=== PATIENT | male | born 1980 | race Caucasian/White ===

== ENCOUNTER 2023-03-13 11:17 | Emergency (ER) | payer OTHER, SELFPAY ==
--- NOTE | 2023-03-13 11:30 | ED.LOWEXIN ---
HPI - Extremity Injury (Lower) General Chief Complaint: Extremity Injury, Lower Stated Complaint: rt knee pain Source: patient Mode of arrival: ambulatory Limitations: no limitations History of Present Illness HPI Narrative: 42 y/o male presented for c/o right knee pain for 5 days. States it started when he stood up from the couch and felt a pain. Yesterday the right knee 'gave out' and felt like he could not apply any weight. Reports today the pain is minimal, the knee just feels weak or fatigued. Denies redness, swelling, numbness, tingling or weakness. States he rides his bike 5 days a week but has not rode for over one week due to the heat. Related Data Allergies Allergy/AdvReac Type Severity Reaction Status Date / Time azithromycin Allergy Rash Verified 03/13/23 11:32 Review of Systems Review of Systems: CONSTITUTIONAL: Denies body aches, fever, chills EYES: Denies visual changes ENT: Denies rhinorrhea, congestion CARDIOVASCULAR: Denies chest pain, palpitations, or edema. RESPIRATORY: Denies cough or dyspnea. GASTROINTESTINAL: Denies abdominal pain, nausea, vomiting, or diarrhea. SKIN: Denies rash, itching, or wounds. MUSCULOSKELETAL: Reports right knee pain Denies back pain, or myalgia. NEUROLOGIC: Denies headache, numbness, tingling, or weakness. PSYCH: reports depression and anxiety. All systems reviewed & are unremarkable except as noted in HPI and below PMFSH Past Medical History Medical History (Updated 03/13/23 @ 11:54 by Mirella Driver, TIFFANIE) No pertinent past medical history Comments At time of signature, I have reviewed and agree with nursing past medical, surgical, social and family history unless otherwise noted. Please see nursing chart for further information. There is no relevant family history pertinent to the presenting complaint Exam Narrative: GENERAL: Well-appearing, and in no acute distress. CHEST: Speaks in full sentences. No respiratory distress. HEART: Regular rate and rhythm. Normal and equal peripheral pulses. EXTREMITIES: Patient is able to bear weight and ambulate with minimal pain to the right knee. No bruising, erythema or warmth. The right knee is without obvious asymmetry or deformity when compared to the other knee. Patient is able to tolerate full flexion, extension, internal and external rotation. No tenderness to palpation of the patella or surrounding areas; no effusion or ballottement. No tenderness over the proximal fibular head. No quadriceps tenderness. Distal motor and neurovascular status intact. RLE has has normal strength and sensation, No open wounds; alignment normal, pulse palpable and equal bilaterally, skin warm, dry, pink. Capillary refill less than 3 seconds. SKIN: Warm, dry, no rash. NEURO: Alert and oriented x3. PSYCH: Normal mood and affect Course Course Emergency Course: Patient is aware of diagnosis, understands and agrees to treatment plan. Anticipatory guidance given. Patient agrees to follow-up as directed and is aware of reasons to seek care at the emergency department. Portions of this record may have been created with voice recognition software Level of Care: Express Care Visit Vital Signs Vital signs: Reviewed MDM - Extremity Injury (Lower) MDM Narrative Medical decision making narrative: Discussed physical exam findings. We discussed the option of an x-ray, however he will try supportive measures and establish with a primary care provider. Patient also mentioned slight mood changes such as depression, and he will be provided with education, and will establish with a PCP. Denies SI or HI at this time, denies plan. Advised supportive measures and signs/symptoms to go to the ER. Pt is appropriate for outpt treatment and f/u. Differential Diagnosis Differential diagnosis: Likely acute internal derangement of knee and other (osteoarthritis, patella dislocation, patellar tendonitis, tendon rupture, gout, bakers cyst, septic bursiti
[2023-03-13 11:33] VITALS: BP 137/95; PULSE 87; RESP 16; TEMP 36.6; O2SAT 99
== END 2023-03-13 11:53 | disposition home or self-care (01) ==
PROVIDERS: Emergency Provider Nurse Practitioner Family
DX: M25.561 Pain in right knee (principal)
CPT/HCPCS: 99213; G0463